=== PATIENT | female | born 1945 | race Caucasian/White ===

== ENCOUNTER → 2017-07-10 | Outpatient (CLI) | payer OTHER, MEDICARE | LOC: BMCIMAGING 13:01 | PROVIDERS: ATTEND Internal Medicine | DX: Z12.31 Encounter for screening mammogram for malignant neoplasm of breast (principal); Z13.820 Encounter for screening for osteoporosis | CPT/HCPCS: G0202 ==

== ENCOUNTER → 2017-12-09 | Outpatient (CLI) | payer OTHER, MEDICARE | LOC: BMCIMAGING 08:24 | PROVIDERS: ATTEND Internal Medicine | DX: R16.0 Hepatomegaly, not elsewhere classified (principal) ==

== ENCOUNTER → 2018-09-16 | Outpatient (CLI) | payer OTHER, MEDICARE | END | disposition home or self-care (01) | LOC: BMCIMAGING 13:12 | PROVIDERS: ATTEND Internal Medicine | DX: Z12.31 Encounter for screening mammogram for malignant neoplasm of breast (principal) ==